=== PATIENT | female | born 1955 | race Caucasian/White ===

== ENCOUNTER → 2017-04-20 | Outpatient (CLI) | payer BC ==
--- NOTE | 2017-04-21 07:14 | CT ---
EXAMINATION TYPE: CT urogram wo/w con DATE OF EXAM: 04/20/2017 HISTORY: Episode of gross hematuria [address] DLP: 1004.4mGycm Automated Exposure Control for Dose Reduction was Utilized. CONTRAST: CT scan of the abdomen and pelvis is performed with IV Contrast, patient injected with 100 mL of Omni paque 300. COMPARISON: 05/28/2015 FINDINGS: LUNG BASES: No significant abnormality is appreciated. LIVER/GB: There is a wedge-shaped area of hypoattenuation near the fissure for the ligamentum teres i n segment IVb of the liver. Morphologically and at this location this most commonly represents focal fatty infiltration, however there is no decreased attenuation on precontrast images and there is enha ncement on portal venous phase with mild washout in comparison to the remainder of the hepatic parenc hyma on delayed phase. Therefore enhanced MR abdomen is recommended within out phase imaging and sequ ences with and without fat saturation to evaluate for focal fatty infiltration versus hepatic lesion. This is seen on image 21 of series 4, 5, and 7 and measures 1.7 x 0.8 cm. The gallbladder is partially contracted giving the appearance of hyperemia of the gallbladder wall. N o common bile duct dilation. No cholelithiasis on the unenhanced images. No intrahepatic biliary duct al dilatation. PANCREAS: No significant abnormality is seen. Pancreas enhances homogeneously without ductal dilatati on. SPLEEN: No significant abnormality is seen. No splenomegaly. ADRENALS: No significant abnormality is seen. Adrenals maintain their adreniform shape. KIDNEYS: On the unenhanced images there is no evidence of nephrolithiasis. No hydronephrosis. On faby ical medullary phase there is no renal lesion identified. No perinephric fat stranding or fluid colle ction. On the delayed imaging there is no evidence of calyceal blunting or uroepithelial thickening. No ureteral stricture on the left. Suboptimal evaluation for ureteral stricture on the right as contr ast is not present in the entirety of the ureter, however there is no ureteral dilatation seen or brandee ss evidence of filling defect. BOWEL: No significant abnormality is seen. No bowel dilation. Sigmoid diverticula are present withou t pericolonic fat stranding. UTERUS/ADNEXA: Uterus appears surgically absent. LYMPH NODES: No greater than 1cm abdominal or pelvic lymph nodes are appreciated. OSSEOUS STRUCTURES: No significant abnormality is seen. OTHER: Urinary bladder contains only minimal contrast on the delayed images and is incompletely evalu ated. IMPRESSION: 1. No evidence of nephrolithiasis, renal mass, hydronephrosis, or uroepithelial thickening. Urinary b ladder is incompletely evaluated as only scant amount of contrast is seen. Further evaluation given t he patient's gross hematuria of the urinary bladder could be performed with pelvic ultrasound or dire ct visualization. 2. Focal hepatic hypoattenuated region that could represent a hepatic mass or focal fatty infiltratio n. Therefore, enhanced MR abdomen is recommended within out phase imaging and sequences with and with out fat saturation to evaluate for focal fatty infiltration versus hepatic lesion.
== END | disposition home or self-care (01) ==
LOC: RADCTMAIN 15:04
PROVIDERS: ATTEND Urology
DX: R31.0 Gross hematuria (principal); R93.2 Abnormal findings on diagnostic imaging of liver and biliary tract; Z88.2 Allergy status to sulfonamides
CPT/HCPCS: 74178; 74400; Q9967

== ENCOUNTER → 2017-11-29 | Outpatient (CLI) | payer BC ==
--- NOTE | 2017-11-29 16:39 | BD ---
EXAMINATION TYPE: Axial Bone Density DATE OF EXAM: 11/29/2017 COMPARISON: NONE CLINICAL HISTORY: 62-year-old female postmenopausal screening, age-related osteoporosis Height: 5 FT 4 IN Weight: 155 FRAX RISK QUESTIONS: History of Fracture in Adulthood: YES Secondary Osteoporosis: RISK FACTORS HISTORY OF: Family History of Osteoporosis: YES Postmenopausal woman: PART HYST AGE 45 Take estrogen and/or progesterone medications: TOOK FROM AGE 53 TO AGE 58 MEDICATIONS: Thyroid Medications: YES Which medication: SYNTHROID How Lon YEARS Additional Medications: SYNTHROID,BLOOD PRESSURE MEDS, CHOLESTEROL MEDS, EFFEXOR Additional History: WAS ON PROLIA 3 YEARS AGO FOR 1 1/2 YRS EXAM MEASUREMENTS: Bone mineral densitometry was performed using the [employer] System. Bone mineral density as measured about the Lumbar spine is: ----- L1-L4(G/cm2): 0.912 T Score Values are as follows: ----- L2: -3.0 ----- L3: -2.2 ----- L4: -2.2 ----- L1-L4: -2.2 Bone mineral density has: INCREASED 4.2 % since study of: 2012 Bone mineral density about the R hip (g/cm2): 0.830 Bone mineral density about the L hip (g/cm2): 0.829 T Score values are as follows: -----R Neck: -1.5 -----L Neck: -1.5 -----R Total: -1.1 -----L Total: -1.1 Bone mineral density has: DECREASED -1.1 % since study of: 2012 IMPRESSION: Osteopenia (T Score between -2.5 and -1). Note that measurements border on osteoporosis in the lumbar spine. There is slightly increased risk of fracture and the patient may be considered for treatment. Re-Screen 2-5 years. NOTE: T-SCORE=SD OF THE YOUNG ADULT MEAN.
--- NOTE | 2017-11-30 13:34 | MM ---
Reason for exam: screening (asymptomatic). Last mammogram was performed 3 years and 11 months ago. History: Patient is postmenopausal. Family history of premenopausal breast cancer in mother at age 47 and breast cancer in maternal grandmother at age 70. Retro-pectoral saline implants in both breasts, 1994. Benign stereotactic core biopsy of the right breast, 1989. Taking estrogen for 3 years beginning at age 54. Physical Findings: A clinical breast exam by your physician is recommended on an annual basis and results should be correlated with mammographic findings. MG 3D Screen Mammo Imp/Cad Bilateral CC, MLO, and ID view(s) were taken. Prior study comparison: January 10, 2014, bilateral MG diagnostic mammo w CAD [place]. November 24, 2012, CAD bilateral diagnostic mammogram. The breast tissue is heterogeneously dense. This may lower the sensitivity of mammography. No suspicious abnormality. No significant changes when compared with prior studies. ASSESSMENT: Negative, BI-RAD 1 RECOMMENDATION: Routine screening mammogram of both breasts in 1 year.
== END | disposition home or self-care (01) ==
LOC: RADMAMWWP 15:30
PROVIDERS: ATTEND Family Medicine
DX: Z12.31 Encounter for screening mammogram for malignant neoplasm of breast (principal); M85.88 Other specified disorders of bone density and structure, other site
CPT/HCPCS: 77063; 77067; 77080

== ENCOUNTER 2020-11-13 10:11 | Day surgery (SDC) | payer BC ==
[2020-11-12 09:29] VITALS: BMI 25.7
[~2020-11-13 10:11] MED LIST: LACTATED RINGERS 1,000 ML IV SCH
[2020-11-13 11:04] VITALS: TEMP 98
[2020-11-13] MEDS ORDERED: LIDOCAINE 1% INJ 10MG/ML (20 ML MDV) ONE (11:16)
[2020-11-13] MEDS ORDERED: fentaNYL (PF) 50 MCG/ML 2 ML AMP ONE (11:16)
[2020-11-13] MEDS ORDERED: MIDAZOLAM 2 MG/2 ML VIAL ONE (11:16)
[2020-11-13] MEDS ORDERED: PROPOFOL 10 MG/ML 20 ML VIAL IV ONE (11:16)
--- NOTE | 2020-11-13 11:37 | P.PCN ---
Date of Procedure: 11/13/20 Procedure(s) Performed: Brief history: Patient is a pleasant 65-year-old white female scheduled for an elective upper endoscopy as well as colonoscopy as a part of evaluation of GERD and prior history of colon polyps. Her last colonoscopy was 5 years ago. Procedure performed: Esophagogastroduodenoscopy with biopsy Colonoscopy Preoperative diagnosis: GERD History of colon polyps Anesthesia: MAC Procedure: After informed consent was obtained from the patient was brought into the endoscopy unit and IV sedation was administered by anesthesia under continuous monitoring. Initially upper endoscopy was done. The Olympus GF 160 video endoscope was inserted inserted into the mouth and esophagus intubated without any difficulty and was gradually advanced into the stomach and duodenum and carefully examined. The bulb and second part of the duodenum appeared normal. The scope was then withdrawn into the stomach adequately insufflated with air and upon careful examination the antrum and body, cardia and fundus appeared normal. The scope was then withdrawn into the esophagus. The GE junction was located at 37 cm to the incisors. It appeared irregular with no erythema erosions or ulcerations. There was a short tongue of Portillo's appearing mucosa extending 2 mm proximal to the GE junction was biopsied Rest of the esophagus appeared normal. Patient tolerated the procedure well. At this time the patient continued to remain sedation. Initial digital rectal examination was normal. Olympus CF 160 video colonoscope was then inserted into the rectum and gradually advanced to the cecum without any difficulty. Careful examination was performed as the scope was gradually being withdrawn. The prep was excellent. The cecum, ascending colon, transverse colon, descending colon, sigmoid colon and rectum appeared normal. Scattered sigmoid diverticulosis. Retroflexion was performed in the rectum and no lesions were noted. Patient tolerated the procedure well. Impression: 1. Upper endoscopy revealed small hiatal hernia and short segment Portillo's esophagus 2. Colonoscopy was within normal limits with no evidence of colitis or colorectal neoplasia Recommendations: Findings of this examination were discussed with the patient as well as her family. She was advised to follow with the biopsy results. If the biopsy reveals Portillo's esophagus she can have a repeat upper endoscopy in 3 years.She'll continue with Nexium 20 mg daily and follow antireflux measures. Advised on repeat surveillance colonoscopy in 5 years because of the prior history of colon polyps
[2020-11-13 11:55] VITALS: BP 120/71; PULSE 72; RESP 14
== END 2020-11-13 12:23 | disposition home or self-care (01) ==
LOC: ORWHC2ENDO 10:11
PROVIDERS: ATTEND Internal Medicine Gastroenterology
DX: Z12.11 Encounter for screening for malignant neoplasm of colon (principal); K21.9 Gastro-esophageal reflux disease without esophagitis; K44.9 Diaphragmatic hernia without obstruction or gangrene; K22.70 Barrett's esophagus without dysplasia; Z86.010 Personal history of colon polyps; I10 Essential (primary) hypertension; E78.5 Hyperlipidemia, unspecified; E07.9 Disorder of thyroid, unspecified; Z79.82 Long term (current) use of aspirin; Z79.890 Hormone replacement therapy; Z79.899 Other long term (current) drug therapy; Z88.2 Allergy status to sulfonamides
CPT/HCPCS: 88305; 43239; J2250; J2001; J3010; J2704; G0105; 45378

== ENCOUNTER → 2020-12-09 | Outpatient (CLI) | payer BC ==
--- NOTE | 2020-12-09 18:36 | ECHOF ---
Referral Reason:I31.3 Pericardial effusion MEASUREMENTS -------- HEIGHT: 165.1 cm WEIGHT: 70.3 kg BP: IVSd: 1.0 cm (0.6 - 1.1) LVIDd: 3.1 cm (3.9 - 5.3) LVPWd: 1.3 cm (0.6 - 1.1) EDV(Teich): 37 ml IVSs: 1.4 cm LVIDs: 2.3 cm LVPWs: 1.6 cm %IVS Thck: 32 % ESV(Teich): 18 ml EF(Teich): 52 % %FS: 25 % SV(Teich): 19 ml RVIDd: 2.6 cm (< 3.3) IVC: 11.73 mm Ao Diam: 3.0 cm (2.0 - 3.7) LA Diam: 3.3 cm (2.7 - 3.8) AV Cusp: 2.1 cm (1.5 - 2.6) EPSS: 1.5 cm MV E Chong: 0.50 m/s MV DecT: 145 ms MV Dec [place]: 3.4 m/s MV A Chong: 0.50 m/s MV E/A Ratio: 0.99 MV PHT: 42 ms MR Vmax: 0.88 m/s MR maxP.09 mmHg AV Vmax: 0.84 m/s AV maxP.79 mmHg TR Vmax: 1.15 m/s TR maxP.33 mmHg RAP: 5.00 mmHg RVSP: 10.33 mmHg MV EF SLOPE: 111.05 mm/s (70 - 150) MV EXCURSION: 10.76 mm (> 18.000) FINDINGS -------- This was a technically difficult study with suboptimal views. Pt. Has Breast inplants The left ventricular size is normal. There is borderline concentric left ventricular hypertrophy. Overall left ventricular systolic function is normal with, an EF between 55 - 60 %. The right ventricle is normal in size. The left atrial size is normal. The right atrial size is normal. Lumason used Interatrial and interventricular septum intact. The aortic valve is trileaflet and appears structurally normal. The mitral valve is normal. The tricuspid valve appears structurally normal. Trace tricuspid regurgitation present. Right larisa tricular systolic pressure is normal at < 35 mmHg. There is no pulmonic regurgitation present. The aortic root size is normal. Normal inferior vena cava with normal inspiratory collapse consistent with estimated right atrial pre ssure of 5 mmHg. There is a small, generalized pericardial effusion present. CONCLUSIONS -------- 1. The left ventricular size is normal. 2. There is borderline concentric left ventricular hypertrophy. 3. Overall left ventricular systolic function is normal with, an EF between 55 - 60 %. 4. Trace tricuspid regurgitation present. 5. There is a small, generalized pericardial effusion present. COREMAKER HELPER: Mercy Orourke RDCS
== END | disposition home or self-care (01) ==
LOC: RADECHMAIN 08:31
PROVIDERS: ATTEND Family Medicine
DX: I31.3 Pericardial effusion (noninflammatory) (principal); I07.1 Rheumatic tricuspid insufficiency
CPT/HCPCS: 93306; Q9950

== ENCOUNTER 2022-06-04 07:07 | Emergency (ER) | payer BC, OTHER ==
[2022-06-04 07:40] VITALS: RESP 18; TEMP 98
--- NOTE | 2022-06-04 07:51 | ED ---
General Adult HPI - General Chief complaint: Fall Stated complaint: Fall, L leg pain Time Seen by Provider: 06/04/22 07:40 Source: patient, RN notes reviewed, old records reviewed Mode of arrival: ambulatory Limitations: no limitations - History of Present Illness Initial comments: This is a 66-year-old female who presents emergency Department complaining that she fell yesterday in the lateral aspect of her left leg is tender. Patient states it hurts to even stand on. Patient denies any knee pain or ankle pain or foot pain. Patient denies any pain. Patient states she did fall on her tailbone as well. Patient denies any head trauma or neck pain. Patient denies any back pain patient denies any other problems at this time. - Related Data Home Medications Medication Instructions Recorded Confirmed Levothyroxine Sodium [Synthroid] 137 mcg PO DAILY 01/26/14 11/13/20 Aspirin EC [Ecotrin Low Dose] 81 mg PO DAILY 12/16/15 11/13/20 Cholecalciferol [Vitamin D3] 5,000 unit PO DAILY 12/16/15 11/13/20 Cyanocobalamin [Vitamin B-12] 1,000 mcg PO DAILY 12/16/15 11/13/20 Esomeprazole Magnesium [NexIUM] 20 mg PO DAILY 11/12/20 11/13/20 Ezetimibe [Zetia] 10 mg PO DAILY 11/12/20 11/13/20 Olmesartan [Benicar] 10 mg PO DAILY 11/12/20 11/13/20 Vortioxetine Hydrobromide 10 mg PO DAILY 11/12/20 11/13/20 [Trintellix] carvediloL [Coreg] 37.5 mg PO BID 11/12/20 11/13/20 Allergies Allergy/AdvReac Type Severity Reaction Status Date / Time Sulfa (Sulfonamide Allergy MUSCLE/JOINT Verified 06/04/22 07:40 Antibiotics) PAIN Review of Systems ROS Statement: Those systems with pertinent positive or pertinent negative responses have been documented in the HPI. ROS Other: All systems not noted in ROS Statement are negative. Past Medical History Past Medical History: Asthma, GERD/Reflux, Hyperlipidemia, Hypertension Additional Past Medical History / Comment(s): osteopenia History of Any Multi-Drug Resistant Organisms: None Reported Past Surgical History: Bladder Surgery, Breast Surgery, Hysterectomy Additional Past Surgical History / Comment(s): deviated septum, varicose vein removal, breast implants, breast biopsy, EDG, colonoscopy, BLADDER SLING, RT BUNIONECTOMY Past Anesthesia/Blood Transfusion Reactions: No Reported Reaction Past Psychological History: Anxiety, Depression Smoking Status: Never smoker Past Alcohol Use History: None Reported Past Drug Use History: None Reported - Past Family History Mother Family Medical History: Cancer Brother(s) Family Medical History: Cancer Sister(s) Family Medical History: Cancer General Exam - General Exam Comments Initial Comments: GENERAL Patient is well-developed and well-nourished. Patient is in mild distress. EYES Patient's pupils are equal and round. Extraocular motion is intact SKIN Unremarkable NEURO The patient is alert and oriented 3 PYSCH Patient has normal interpersonal interactions. MUSCULOSKELETAL Patient's left leg is tender to palpation along the fibula the calf has very minimal tenderness on palpation there is no swelling or effusions noted there is no pain around the knee or ankle Limitations: no limitations Course Vital Signs 06/04/22 07:37 Temperature 98 F Pulse Rate 78 Respiratory 18 Rate Blood Pressure 121/78 O2 Sat by Pulse 98 Oximetry Medical Decision Making - Medical Decision Making Was pt. sent in by a medical professional or institution (, PA, [facility], urgent care, hospital, or intermediate...) When possible be specific @ -No Did you speak to anyone other than the patient for history (EMS, parent, family, police, friend...)? What history was obtained from this source @ -No Did you review nursing and triage notes (agree or disagree)? Why? @ -I reviewed and agree with nursing and triage notes Were old charts reviewed (outside hosp., previous admission, EMS record, old EKG, old radiological studies, urgent care reports/EKG's, intermediate records)? Report findings @ -No old charts were reviewed Differential Diagnosis (chest pain, altered mental status, abdominal pain women, abdominal pain men, vaginal bleeding, weakness, fever, dyspnea, syncope, headache, dizziness, GI bleed, back pain, seizure, CVA, palpatations, mental health)? @ -Fracture versus contusion versus muscle strain this is not all inclusive list EKG interpreted by me (3pts min.). @ -As above X-rays interpreted by me (1pt min.). @ -X-rays of the tib-fib were interpreted by myself. X-ray of the tib-fib shows a fracture that is nondisplaced of the fibula. X-ray of the coccyx and sacrum were interpreted by myself. Shows deviation of the coccyx but no obvious fracture. CT interpreted by me (1pt min.). @ -None done U/S interpreted by me (1pt. min.). @ -None done What testing was considered but not performed or refused? (CT, X-rays, U/S, labs)? Why? @ -None What meds were considered but not given or refused? Why? @ -None Did you discuss the management of the patient with other professionals (professionals i.e. , PA, [facility], lab, RT, psych nurse, social service assistant, hot wire glass tube cutter, teacher, personnel officer, caser up)? Give summary @ -No Was smoking cessation discussed for >3mins.? @ -No Was critical care preformed (if so, how long)? @ -No Were there social determinants of health that impacted care today? How? (Homelessness, low income, unemployed, alcoholism, drug addiction, transportation, low edu. Level, literacy, decrease access to med. care, [place] [facility], rehab)? @ -No Was there de-escalation of care discussed even if they declined (Discuss DNR or withdrawal of care, Hospice)? DNR status @ -No What co-morbidities impacted this encounter? (DM, HTN, Smoking, COPD, CAD, Cancer, CVA, ARF, Chemo, Hep., AIDS, mental health diagnosis, sleep apnea, morbid obesity)? @ -None Was patient admitted / discharged? Hospital course, mention meds given and route, prescriptions, significant lab abnormalities, going to OR and other pertinent info. @ -Patient has fractured the fibula she will have a follow-up with orthopedics. Patient also has a displaced coccyx bone patient will be told to sit on a inflatable donut so as to not put pressure on this coccyx bone Undiagnosed new problem with uncertain prognosis? @ -No Drug Therapy requiring intensive monitoring for toxicity (Heparin, Nitro, Insulin, Cardizem)? @ -No Were any procedures done? @ -No Diagnosis/symptom? @ -Fractured fibula Acute, or Chronic, or Acute on Chronic? @ -Acute Uncomplicated (without systemic symptoms) or Complicated (systemic symptoms)? @ -Uncomplicated Side effects of treatment? @ -No Exacerbation, Progression, or Severe Exacerbation? @ -No Poses a threat to life or bodily function? How? (Chest pain, [place], OR, pneumonia, PE, COPD, DKA, ARF, appy, cholecystitis, CVA, Diverticulitis, Homicidal, Suicidal, threat to staff... and all critical care pts) @ -No Diagnosis/symptom? @ -Displaced coccyx Acute, or Chronic, or Acute on Chronic? @ -Acute Uncomplicated (without systemic symptoms) or Complicated (systemic symptoms)? @ -default Side effects of treatment? @ -none Exacerbation, Progression, or Severe Exacerbation] @ -no Poses a threat to life or bodily function? @ -no Disposition Clinical Impression: Fractured fibula, Coccyx disorder Disposition: HOME SELF-CARE Condition: Good Instructions (If sedation given, give patient instructions): Leg Fracture (ED), Fall Prevention (ED) Additional Instructions: Patient should use crutches and be non-weight bearing until follow-up with orthopedics Patient should use a inflatable donut and sit on that for the coccyx abnormality Is patient prescribed a controlled substance at d/c from ED?: No Referrals: Tra Neil MD [STAFF PHYSICIAN] - 1-2 days Time of Disposition: 09:01
--- NOTE | 2022-06-04 08:36 | XR ---
EXAMINATION TYPE: XR sacrum coccyx 3 views, XR tibia fibula 2 views LT DATE OF EXAM: 06/04/2022 COMPARISON: Previous sacrum 04/30/2014 HISTORY: 66-year-old female pain after fall yesterday FINDINGS: Sacrum and coccyx: SI joints appear symmetric and intact. Small delineation to the arcuate lines of the sacrum. Pubic sy mphysis appears intact. As compared to the 2013 exam, the distal coccygeal segment shows slight anter ior displacement. Similar undulation along the upper coccygeal segment. Left tibia/fibula: Oblique linear lucency along the proximal fibular shaft likely projectional as there is no fracture s een on the lateral view. No other acute fracture, subluxation, or dislocation seen. IMPRESSION: 1. Sacrum and coccyx: Slight anterior displacement of the distal coccygeal segment as compared to the 2013 exam. If focal pain here, findings suggest a subtle tailbone fracture. 2. Left tibia/fibula: There is an oblique lucency along the proximal fibular shaft that is likely pro jectional as there is no corresponding abnormality seen on the lateral view. No acute osseous abnorma lity seen.
[2022-06-04 09:42] VITALS: BP 124/80; PULSE 82
== END 2022-06-04 09:36 | disposition home or self-care (01) ==
LOC: EC 07:07
DX: S82.402A Unspecified fracture of shaft of left fibula, initial encounter for closed fracture (principal); M53.3 Sacrococcygeal disorders, not elsewhere classified; J45.909 Unspecified asthma, uncomplicated; K21.9 Gastro-esophageal reflux disease without esophagitis; E78.5 Hyperlipidemia, unspecified; I10 Essential (primary) hypertension; F41.9 Anxiety disorder, unspecified; F32.A Depression, unspecified; Z88.2 Allergy status to sulfonamides; Z79.82 Long term (current) use of aspirin; Z79.899 Other long term (current) drug therapy; W01.0XXA Fall on same level from slipping, tripping and stumbling without subsequent striking against object, initial encounter; Y92.009 Unspecified place in unspecified non-institutional (private) residence as the place of occurrence of the external cause
CPT/HCPCS: 72220; 99284

== ENCOUNTER → 2024-03-15 | Outpatient (CLI) | payer MEDICARE ==
--- NOTE | 2024-03-15 22:47 | BD ---
EXAMINATION TYPE: Axial Bone Density DATE OF EXAM: 03/15/2024 CLINICAL HISTORY: 68 years old Female. ICD-10 CODE: M85.9 MENOPAUSAL STATE Height: 63.5 Weight: 162.5 FRAX RISK QUESTIONS: Alcohol (3 or more units per day): no Family History (Parent hip fracture): no Glucocorticoids (More than 3mos): no (Ex: prednisone, prednisolone, methylprednisolone, dexamethasone, and hydrocortisone). History of Fracture in Adulthood: fibula Secondary Osteoporosis: 1. Type 1 Diabetes: no 2. Hyperthyroidism: no 3. Menopause before 45: no 4. Malnutrition: no 5. Chronic liver disease: no Rheumatoid Arthritis: no Current Tobacco Use: no RISK FACTORS HISTORY OF: Hip Fracture (Right/Left): no Spine Fracture: no History of Wrist Fracture: no Surgery to Spine/Hip(right/left)/Wrist (right/left): no MEDICATIONS: Thyroid Medications: Synthroid How Long: past 35 years Osteoporosis Medications: no EXAM MEASUREMENTS: Bone mineral densitometry was performed using the [employer]. Bone mineral density as measured about the Lumbar spine is: ----- L1-L4(G/cm2): 0.746 T Score Values are as follows: ----- L1: -3.3 ----- L2: -3.9 ----- L3: -3.6 ----- L4: -3.7 ----- L1-L4: -3.6 Z Score Values are as follows: ----- L1: -2.0 ----- L2: -2.6 ----- L3: -2.3 ----- L4: -2.4 ----- L1-L4: -2.3 Bone mineral density has: decreased -18.2 % since study of: 11/29/2017 Bone mineral density about the R hip (g/cm2): 0.799 Bone mineral density about the L hip (g/cm2): 0.849 T Score values are as follows: -----R Neck: -1.9 -----L Neck: -1.6 -----R Total: -1.7 -----L Total: -1.3 Z Score values are as follows: -----R Neck: -0.5 -----L Neck: -0.2 -----R Total: -0.6 -----L Total: -0.2 Bone mineral density has: decreased -5.0 % since study of: 11/29/2017 FRAX%s: The graph provided illustrates a 17.0% chance for a major osteoporotic fx and a 2.5% chance f or the hips probability for fx in 10 years time. IMPRESSION: Osteoporosis (T Score less than -2.5). There is increased fracture risk and therapy is usually indicated based on age. Re-Screen 1-2 years. NOTE: T-SCORE=SD OF THE YOUNG ADULT MEAN. [facility], , 03/15/2024 10:44 PM
--- NOTE | 2024-03-16 11:16 | MM ---
Reason for Exam: Screening (asymptomatic). Last mammogram was performed 3 year(s) and 5 month(s) ago. Indicated Problems: Breast implant problem of the right side for 2 Month(s). Patient History: Menarche at age 14. First Full-Term at age 18. Hysterectomy at age 47. Postmenopausal. Patient has history of breast feeding. Currently using Estrogen, beginning at age 54 for 3 years. 1989, Benign Stereotactic Core Biopsy on the right side. 1994, Bilateral Implants. Maternal grandmother had breast cancer, age 70. Maternal aunt had ovarian cancer at or over age 50. Maternal cousin had breast cancer under age 50. Mother had breast cancer, age 47. Mother had breast cancer, age 73. Risk Values: Miranda 5 year model risk: 3.7%. NCI Lifetime model risk: 12.8%. Prior Study Comparison: 03/03/2010 Bilateral Diagnostic Mammogram, LOCATED WITHIN [facility]. 11/24/2012 Bilateral Diagnostic Mammogram, LOCATED [facility]IN [facility]. 01/10/2014 Bilateral Diagnostic Mammogram, LOCATED [facility]IN [facility]. 11/29/2017 Bilateral Screening Mammogram, LOCATED [facility]IN [facility]. 10/14/2020 Bilateral Screening Mammogram, [facility]. Tissue Density: There are scattered areas of fibroglandular density. Findings: Analyzed By CAD. Bilateral breast implants appear intact. Right breast: There is no suspicious group of microcalcifications or new suspicious mass. Left breast: There is no suspicious group of microcalcifications or new suspicious mass. Overall Assessment: Benign, BI-RAD 2 Management: Screening Mammogram of both breasts in [address] [facility] will attempt to contact patient to return for supplemental views and ultrasound if indicated. Patient should continue monthly self-breast exams. A clinical breast exam by your physician is recommended on an annual basis. This exam should not preclude additional follow-up of suspicious palpable abnormalities. Note on Miranda scores and lifetime risk: 1. A Miranda score greater than 3% is considered moderate risk. If this is the case, consider specialist referral to assess eligibility for a risk reducing agent. 2. If overall lifetime risk for the development of breast cancer is 20% or higher, the patient may qualify for future screening with alternating mammogram and breast MRI. [facility], , 03/16/2024 11:13 AM. Electronically signed and approved by: Carlos Van DO
== END | disposition home or self-care (01) ==
LOC: RADMAMWWP 12:32
PROVIDERS: ATTEND Family Medicine
CPT/HCPCS: 77063; 77067; 77080

== ENCOUNTER → 2024-04-06 | Outpatient (CLI) | payer MEDICARE ==
[2024-04-06 14:03] VITALS: BP 124/82; PULSE 80; RESP 16; TEMP 98.3
[2024-04-06] MEDS: DENOSUMAB 60 MG/ML 1 ML SYRINGE SQ NR (14:03)
== END ==
LOC: PROCWHC3 13:53
PROVIDERS: ATTEND Family Medicine
DX: M81.0 Age-related osteoporosis without current pathological fracture (principal)
CPT/HCPCS: 96372; J0897

== ENCOUNTER 2024-06-22 11:04 | Emergency (ER) | payer MEDICARE ==
[2024-06-22 11:14] VITALS: TEMP 98.4
--- NOTE | 2024-06-22 11:30 | ED ---
General Adult HPI - General Chief complaint: Recheck/Abnormal Lab/Rx Stated complaint: Irreg BP Time Seen by Provider: 06/22/24 11:16 Source: patient Mode of arrival: ambulatory Limitations: no limitations - History of Present Illness Initial comments: Dictation was produced using [employer] dictation software. please excuse any grammatical, word or spelling errors. Chief Complaint: 68-year-old female with hypertension History of Present Illness: Patient 68-year-old female presents emergency department hypertension that has been having high blood pressure since yesterday. States that she has a mild headache. Patient states that headache is not severe. Denies any strokelike symptoms. No chest pain shortness of breath. She contacted her winter sports manager Dr. Norman who told her to come to the emergency department. The ROS documented in this emergency department record has been reviewed and confirmed by me. Those systems with pertinent positive or negative responses have been documented in the HPI. All other systems are other negative and/or noncontributory. - Related Data Home Medications Medication Instructions Recorded Confirmed Levothyroxine Sodium [Synthroid] 137 mcg PO DAILY 01/26/14 06/22/24 Cyanocobalamin [Vitamin B-12] 1,000 mcg PO DAILY 12/16/15 06/22/24 Esomeprazole Magnesium [NexIUM] 20 mg PO DAILY 11/12/20 06/22/24 Ezetimibe [Zetia] 10 mg PO DAILY 11/12/20 06/22/24 carvediloL [Coreg] 37.5 mg PO BID 11/12/20 06/22/24 Cholecalciferol [Vitamin D3 (125 125 mcg PO DAILY 06/22/24 06/22/24 Mcg = 5000 Iu)] LORazepam [Ativan] 0.5 mg PO DAILY PRN 06/22/24 06/22/24 Olmesartan Medoxomil [Benicar] 40 mg PO DAILY 06/22/24 06/22/24 Rosuvastatin Calcium [Crestor] 5 mg PO DAILY 06/22/24 06/22/24 Allergies Allergy/AdvReac Type Severity Reaction Status Date / Time Sulfa (Sulfonamide Allergy MUSCLE/JOINT Verified 06/22/24 11:11 Antibiotics) PAIN Review of Systems ROS Statement: Those systems with pertinent positive or pertinent negative responses have been documented in the HPI. ROS Other: All systems not noted in ROS Statement are negative. Past Medical History Past Medical History: Asthma, GERD/Reflux, Hyperlipidemia, Hypertension Additional Past Medical History / Comment(s): osteopenia History of Any Multi-Drug Resistant Organisms: None Reported Past Surgical History: Bladder Surgery, Breast Surgery, Hysterectomy Additional Past Surgical History / Comment(s): deviated septum, varicose vein removal, breast implants, breast biopsy, EDG, colonoscopy, BLADDER SLING, RT BUNIONECTOMY Past Anesthesia/Blood Transfusion Reactions: No Reported Reaction Past Psychological History: Anxiety, Depression Smoking Status: Never smoker Past Alcohol Use History: None Reported Past Drug Use History: None Reported - Past Family History Mother Family Medical History: Cancer Brother(s) Family Medical History: Cancer Sister(s) Family Medical History: Cancer General Exam - General Exam Comments Initial Comments: PHYSICAL EXAM: General Impression: Alert and oriented x3, not in acute distress HEENT: Normocephalic atraumatic, extra-ocular movements intact, pupils equal and reactive to light bilaterally, mucous membranes moist. Cardiovascular: Heart regular rate and rhythm Chest: Able to complete full sentences, no retractions, no tachypnea Abdomen: abdomen soft, non-tender, non-distended, no organomegaly Musculoskeletal: Pulses present and equal in all extremities, no peripheral edema Motor: no focal deficits noted Neurological: CN II-XII grossly intact, no focal motor or sensory deficits noted Skin: Intact with no visualized rashes Psych: Normal affect and mood Limitations: no limitations Course Vital Signs 06/22/24 11:11 Temperature 98.4 F Pulse Rate 79 Respiratory 18 Rate Blood Pressure 171/90 O2 Sat by Pulse 96 Oximetry EKG Findings - EKG Comments: EKG Findings:: My EKG interpretation: Ventricular rate 74, sinus rhythm,. Well 221, QRS 86, QTc 397. No ID prolongation, no QTC prolongation, no ST or T-wave changes noted. Overall, this EKG is unremarkable Medical Decision Making - Medical Decision Making Was pt. sent in by a medical professional or institution (, PA, PUBLIC HEALTH EPIDEMIOLOGIST, urgent care, hospital, or long-term...) When possible be specific @ -No Did you speak to anyone other than the patient for history (EMS, parent, family, police, friend...)? What history was obtained from this source @ -No Did you review nursing and triage notes (agree or disagree)? Why? @ -I reviewed and agree with nursing and triage notes Were old charts reviewed (outside hosp., previous admission, EMS record, old EKG, old radiological studies, urgent care reports/EKG's, long-term records)? Report findings @ -No old charts were reviewed Differential Diagnosis (chest pain, altered mental status, abdominal pain women, abdominal pain men, vaginal bleeding, musculoskeletal, weakness, fever, dyspnea, syncope, headache, dizziness, GI bleed, back pain, seizure, CVA, palpatations, mental health)? @ -Differential Headache: Migraine, tension, cluster, carbon monoxide, central venous thrombosis, pension karma temporal arteritis, acute closure glaucoma, intercranial hemorrhage, mastoiditis, sinusitis, head injury, this is not meant to be an all-inclusive list. EKG interpreted by me (3pts min.). @ -None done X-rays interpreted by me (1pt min.). @ -None done CT interpreted by me (1pt min.). @ -CT brain shows no acute processes U/S interpreted by me (1pt. min.). @ -None done What testing was considered but not performed or refused? (CT, X-rays, U/S, labs)? Why? @ -None What meds were considered but not given or refused? Why? @ -None Was smoking cessation discussed for >3mins.? @ -No Were there social determinants of health that impacted care today? How? (Homelessness, low income, unemployed, alcoholism, drug addiction, transportation, low edu. Level, literacy, decrease access to med. care, [facility], rehab)? @ -No Was there de-escalation of care discussed even if they declined (Discuss DNR or withdrawal of care, Hospice)? DNR status @ -No What co-morbidities impacted this encounter? (DM, HTN, Smoking, COPD, CAD, Cancer, CVA, ARF, Chemo, Hep., AIDS, mental health diagnosis, sleep apnea, morbid obesity)? @ -None Was patient admitted / discharged? Hospital course, mention meds given and route, prescriptions, significant lab abnormalities, going to OR and other pertinent info. @ -68-year-old female presents with hypertension. She does not have any symptoms of hypertensive emergency she does have a mild migraine but denies that this is the worst headache of her life. Patient well-appearing at the bedside no acute distress. Laboratory evaluation is unremarkable. Patient observed emergency department. Blood pressure decreased. Patient will be discharged told to follow-up with primary care doctor. Did you discuss the management of the patient with other professionals (professionals i.e. , PA, PUBLIC HEALTH EPIDEMIOLOGIST, lab, RT, psych nurse, social media content manager, adjunct teacher, teacher, landing signal officer, major case detective)? Give summary @ -No Was critical care preformed (if so, how long)? @ -No Undiagnosed new problem with uncertain prognosis? @ -No Drug Therapy requiring intensive monitoring for toxicity (Heparin, Nitro, Insulin, Cardizem)? @ -No Were any procedures done? @ -No Diagnosis/symptom? Acute, or Chronic, or Acute on Chronic? Uncomplicated (without systemic symptoms) or Complicated (systemic symptoms)? @ -Hypertension, no high risk features Side effects of treatment? @ -No Exacerbation, Progression, or Severe Exacerbation? @ -No Poses a threat to life or bodily function? How? (Chest pain, [place], [place], pneumonia, PE, COPD, DKA, ARF, appy, cholecystitis, CVA, Diverticulitis, Homicidal, Suicidal, threat to staff... and all critical care pts) @ -No - Lab Data Result diagrams: 06/22/24 11:31 06/22/24 11:31 Lab Results 06/22/24 06/22/24 06/22/24 Range/Units 11:31 11:31 11:33 WBC 5.5 (3.8-10.6) k/uL RBC 4.21 (3.80-5.40) m/uL Hgb 14.2 (11.4-16.0) gm/dL Hct 42.3 (34.0-46.0) % MCV 100.6 H (80.0-100.0) fL MCH 33.8 (25.0-35.0) pg MCHC 33.6 (31.0-37.0) g/dL RDW 11.9 (11.5-15.5) % Plt Count 340 (150-450) k/uL MPV 7.0 Neutrophils % 55 % Lymphocytes % 33 % Monocytes % 6 % Eosinophils % 3 % Basophils % 1 % Neutrophils # 3.0 (1.3-7.7) k/uL Lymphocytes # 1.8 (1.0-4.8) k/uL Monocytes # 0.3 (0-1.0) k/uL Eosinophils # 0.2 (0-0.7) k/uL Basophils # 0.0 (0-0.2) k/uL Sodium 134 L (137-145) mmol/L Potassium 4.3 (3.5-5.1) mmol/L Chloride 100 (98-107) mmol/L Carbon Dioxide 22 (22-30) mmol/L Anion Gap 12 mmol/L BUN 9 (7-17) mg/dL Creatinine 0.57 (0.52-1.04) mg/dL Est GFR (CKD-EPI)AfAm >90 (>60 ml/min/1.73 sqM) Est GFR (CKD-EPI)NonAf >90 (>60 ml/min/1.73 sqM) Glucose 90 (74-99) mg/dL Calcium 9.7 (8.4-10.2) mg/dL Total Bilirubin 0.6 (0.2-1.3) mg/dL AST 25 (14-36) U/L ALT 23 (4-34) U/L Alkaline Phosphatase 52 (38-126) U/L Total Protein 7.4 (6.3-8.2) g/dL Albumin 4.6 (3.5-5.0) g/dL Urine Color Light Yellow Urine Appearance Clear (Clear) Urine pH 7.0 (5.0-8.0) Ur Specific [place] 1.008 (1.001-1.035) Urine Protein Negative (Negative) Urine Glucose (UA) Negative (Negative) Urine Ketones Negative (Negative) Urine Blood Negative (Negative) Urine Nitrite Negative (Negative) Urine Bilirubin Negative (Negative) Urine Urobilinogen <2.0 (<2.0) mg/dL Ur Leukocyte Esterase Trace H (Negative) Urine WBC 1 (0-5) /hpf Ur Squamous Epith Cells 1 (0-4) /hpf Urine Mucus Rare H (None) /hpf Disposition Clinical Impression: Hypertension Disposition: HOME SELF-CARE Condition: Good Instructions (If sedation given, give patient instructions): Hypertension (ED) Is patient prescribed a controlled substance at d/c from ED?: No Referrals: Beth Zuñiga MD [Primary Care Provider] - 1-2 days Time of Disposition: 12:09
[2024-06-22 11:43] LABS: Basophils % (A) 1 %; Eosinophils # (A) 0.2 k/uL (0-0.7); Eosinophils % (A) 3 %; HCT 42.3 % (34.0-46.0); HGB 14.2 gm/dL (11.4-16.0); Lymphocytes # (A) 1.8 k/uL (1.0-4.8); Lymphocytes % (A) 33 %; MCH 33.8 pg (25.0-35.0); MCHC 33.6 g/dL (31.0-37.0); MCV 100.6 fL (80.0-100.0); Monocytes # (A) 0.3 k/uL (0-1.0); Monocytes % (A) 6 %; Neutrophils % (A) 55 %; Platelet Count 340 k/uL (150-450); RBC 4.21 m/uL (3.80-5.40); RDW 11.9 % (11.5-15.5); WBC 5.5 k/uL (3.8-10.6)
[2024-06-22 11:55] LABS: Appearance,Urine Clear (Clear); Bilirubin,Urine Negative (Negative); Blood,Urine Negative (Negative); Color,Urine Light Yellow; Glucose,Urine (UA) Negative (Negative); Ketones,Urine Negative (Negative); Leukocyte Esterase,Urine Trace (Negative); Mucus,Urine Rare /hpf; Nitrite,Urine Negative (Negative); Protein,Urine Negative (Negative); Specific Gravity,Urine 1.008 (1.001-1.035); Squamous Epithelial Cell,Urine 1 /hpf (0-4); Urobilinogen,Urine <2.0 mg/dL (<2.0); WBC,Urine 1 /hpf (0-5)
[2024-06-22 11:55] LABS: ALT 23 U/L (4-34); AST 25 U/L (14-36); African American GFR (CKD) >90 (>60 ml/min/1.73 sqM); Albumin 4.6 g/dL (3.5-5.0); Alkaline Phosphatase 52 U/L (38-126); Anion Gap 12 mmol/L; Blood Urea Nitrogen 9 mg/dL (7-17); Calcium 9.7 mg/dL (8.4-10.2); Carbon Dioxide 22 mmol/L (22-30); Chloride 100 mmol/L (98-107); Glucose 90 mg/dL (74-99); Non-African American GFR(CKD) >90 (>60 ml/min/1.73 sqM); Potassium 4.3 mmol/L (3.5-5.1); Sodium 134 mmol/L (137-145); Total Bilirubin 0.6 mg/dL (0.2-1.3); Total Protein 7.4 g/dL (6.3-8.2)
--- NOTE | 2024-06-22 12:00 | CT ---
EXAMINATION TYPE: CT brain wo con DATE OF EXAM: 06/22/2024 COMPARISON: CT brain April 30, 2024 CLINICAL INDICATION: Female, 68 years old with history of headache; PHH, Headache, hypertension TECHNIQUE: CT scan of the head is performed without contrast. CT DLP: 1134.4 mGycm Automated exposure control for dose reduction was used. FINDINGS: There is no acute intracranial hemorrhage or midline shift identified. There is mild diff use ventricular and sulcal prominence redemonstrated. There is mild low-attenuation in the periventr icular white matter redemonstrated. The globes are intact and the visualized sinuses are clear. IMPRESSION: No acute intracranial hemorrhage or midline shift. [facility], , 06/22/2024 11:57 AM
[2024-06-22 14:45] VITALS: RESP 18
[2024-06-22 15:01] VITALS: BP 137/89; PULSE 85
== END 2024-06-22 15:01 | disposition home or self-care (01) ==
LOC: EC 11:04
DX: I10 Essential (primary) hypertension (principal); Z88.2 Allergy status to sulfonamides
CPT/HCPCS: 36415; 70450; 80053; 81001; 85025; 93005; 99284